=== PATIENT | male | born 1955 | race Caucasian/White ===

== ENCOUNTER 2017-01-10 23:01 | Inpatient (IN) | payer OTHER ==
[~2017-01-10] VITALS: Ht 175.3 cm; Wt 76.8 kg
[2017-01-11] VITALS (13 sets, daily range): BP systolic 109–140; BP diastolic 69–97; PULSE 55–81; RESP 14–20; Ht 175.3 cm; Wt 76.8 kg
[2017-01-11] MEDS ORDERED: morphine 2 MG INJ IV PRN (05:30)
[2017-01-11] MEDS ORDERED: NITROGLYCERIN (SL) 0.4 MG TAB SL PRN (05:30)
[2017-01-11] MEDS ORDERED: ACETAMINOPHEN 325 MG TAB PO PRN (05:30)
[2017-01-11] MEDS: PANTOPRAZOLE 40 MG INJ IV SCH (06:00)
[2017-01-11] MEDS: ASPIRIN 325 MG TAB PO SCH (10:03)
[2017-01-11] MEDS: ENOXAPARIN 40 MG/0.4 ML SYG SC SCH (10:05)
[2017-01-11 10:30] LABS: ADD SCAN DIFF NO
--- NOTE | 2017-01-11 10:34 | HP ---
DATE OF ADMISSION: 01/11/2017 HISTORY OF PRESENT ILLNESS: Александр Foster is a middle-aged man with no significant past medical history, taken to [facility] with back pain, nausea, diaphoresis and patient was on . The patient was noted to have hematocrit 44.4, BUN 21, , potassium 4.1. The patient had troponin 0.11. Chest x-ray within normal limits and the patient was transferred here for further management. The patient's EKG shows sinus bradycardia, rate of 58, otherwise unremarkable. PAST MEDICAL HISTORY: Negative. ALLERGY: NEGATIVE. SOCIAL HISTORY: Negative. FAMILY HISTORY: Positive for CVA, hypertension. MEDICATION HISTORY: None. REVIEW OF SYSTEMS: HEENT: Unremarkable. RESPIRATORY: Unremarkable. CARDIOVASCULAR: Unremarkable. ABDOMEN: Unremarkable. EXTREMITIES: Unremarkable. GENITOURINARY: Unremarkable. MUSCULOSKELETAL: Unremarkable. PHYSICAL EXAMINATION: GENERAL: The patient is awake, alert. VITAL SIGNS: Pulse 75 , blood pressure stable . HEAD: Atraumatic, normocephalic. Pupils equal, reactive to light. NECK: Supple. No JVD. LUNGS: Clear. CARDIOVASCULAR: S1, S2 normal. ABDOMEN: Soft, obese. Bowel sounds positive. No palpable mass or hepatosplenomegaly. No guarding, rebound tenderness. EXTREMITIES: There is no cyanosis, clubbing, or edema. CENTRAL NERVOUS SYSTEM: The patient is awake, alert with no focal deficit. LABORATORY DATA: As mentioned above. IMPRESSION: 1. Acute coronary syndrome, positive troponin. 2. Rule out myocardial infarction. 3. Sinus bradycardia. PLAN: To obtain cardiology consultation, a 2D echo. Troponin will be sent and possible Lexiscan. Orders were done. Dictated By: LUDY NICHOLAS MD BS/NTS Conf#: [id number] DID#: [id number] MTDD
[2017-01-11 10:36] LABS: BASOPHIL # 0.1 10^3/ul (0.0-0.1); BASOPHILS % 0.6 % (0.0-2.0); EOSINOPHILS # 0.2 10^3/ul (0.0-0.5); EOSINOPHILS % 1.8 % (0.0-7.0); HEMATOCRIT 46.4 % (42.0-52.0); HEMOGLOBIN 15.3 g/dl (14.0-18.0); LYMPHOCYTES # 2.1 10^3/ul (0.8-2.9); MEAN CORPUSCULAR HEMOGLOBIN 30.1 pg (29.0-33.0); MEAN CORPUSCULAR VOLUME 91.2 fl (82.0-101.0); MEAN PLATELET VOLUME 9.9 fl (7.4-10.4); MONOCYTE # 0.5 10^3/ul (0.3-0.9); MONOCYTES % 6.2 % (0.0-11.0); NEUTROPHIL # 5.3 10^3/ul (1.6-7.5); NEUTROPHILS % 64.9 % (39.0-77.0); PLATELET COUNT 173 10^3/UL (140-415); RED BLOOD COUNT 5.09 10^6/ul (4.70-6.10); RED CELL DISTRIBUTION WIDTH 12.4 % (11.5-14.5); WHITE BLOOD COUNT 8.1 10^3/ul (4.8-10.8)
[2017-01-11 11:05] LABS: ALBUMIN 4.8 g/dl (3.3-4.9); ALBUMIN/GLOBULIN RATIO 1.65; BILIRUBIN,INDIRECT 0.6 mg/dl (0-1.1); BILIRUBIN,TOTAL 0.6 mg/dl (0.2-1.3); CALCIUM 9.7 mg/dl (8.4-10.2); CHOL/HDL RATIO 4.3 RATIO; CREATININE 0.96 mg/dl (0.61-1.24); TOTAL PROTEIN 7.7 g/dl (6.1-8.1)
[2017-01-11] MEDS: AL HYDROX/MG HYDROX/SIMETH 30 ML CUP PO PRN ×2 (12:39→22:00)
--- NOTE | 2017-01-11 16:39 | RADRPT ---
Echocardiogram Report Patient Name: SOLA DAVIDSON Gender: Male Date: 1955 Study Date: 11-Jan-2017 Data Entry Assistant: Ngozi [facility] Location: 5554 Ref. Physician: LUDY NICHOLAS Quality: Adequate Procedures: Transthoracic echocardiogram with complete 2D, M-Mode, and doppler examination. Indications: Chest Pain. 2D/M Mode Doppler Measurement Value Normal Ranges Measurement Value Normal Ranges LVIDd 2D 4.1 3.5 - 5.6 cm AV Peak Pako 1.4 m/sec LVIDs 2D 2.6 2.1 - 4.1 cm AV Peak PG 7.3 mmHg LVPWd 2D 0.9 0.6 - 1.1 cm LVOT Peak Pako 1.0 m/sec IVSd 2D 0.8 0.6 - 1.1 cm LVOT Peak PG 4.1 mmHg AoR Diam 2D 2.9 2.0 - 3.7 cm MV E Peak Pako 0.8 m/sec EDV 2D 72.6 cm3 MV A Peak Pako 0.9 m/sec ESV 2D 18.0 cm3 MV E/A 0.9 LA Dimen 2D 3.5 2.3 - 4.0 cm MV Decel Time 200 msec MV Decel [place] 4 MV E/A 0.9 Findings Left Ventricle: Normal left ventricular systolic function. Normal left ventricular cavity size. Normal left ventricular wall thickness. Ejection fraction is visually estimated at 60 %. Tissue Doppler/Mitral Doppler indices are consistent with impaired relaxation (Stage I diastolic dysfunction). Right Ventricle: Normal right ventricular size. Normal right ventricular systolic function. Left Atrium: The left atrium is normal in size. Right Atrium: The right atrium is normal in size. Mitral Valve: Mitral valve leaflets appear mildly thickened. Trace mitral regurgitation. Aortic Valve: Normal appearance of the aortic valve. No significant aortic stenosis or insufficiency. Tricuspid Valve: Normal appearance and function of the tricuspid valve with trace physiologic regurgitation. Unable to obtain RVSP due to minimal presence of tricuspid regurgitation. Pulmonic Valve: Pulmonic valve not well visualized. There is trace pulmonic regurgitation. Pericardium: Normal pericardium with no significant pericardial effusion. Aorta: Normal aortic root. IVC: Normal size and normal respiratory collapse consistent with normal right atrial pressure. Conclusions 1.Normal left ventricular systolic function. Normal left ventricular cavity size. Normal left ventricular wall thickness. Ejection fraction is visually estimated at 60 %. Tissue Doppler/Mitral Doppler indices are consistent with impaired relaxation (Stage I diastolic dysfunction). 2.Mitral valve leaflets appear mildly thickened. Trace mitral regurgitation. 3.Normal appearance and function of the tricuspid valve with trace physiologic regurgitation. Unable to obtain RVSP due to minimal presence of tricuspid regurgitation. 4.Pulmonic valve not well visualized. There is trace pulmonic regurgitation. Electronically Signed By: Wale Parks 11-Jan-2017 16:38:22 -0700 Patient Name: SOLA DAVIDSON Study Date: 11-Jan-[id number]
--- NOTE | 2017-01-11 16:49 | CONS ---
DATE OF ADMISSION: 01/11/2017 DATE OF CONSULTATION: 01/11/2017 TYPE OF CONSULTATION: Cardiology REASON FOR CONSULTATION: Chest pain, assess for acute coronary syndrome. REQUESTING PHYSICIAN: Cortes Nicholas MD. HISTORY OF PRESENT ILLNESS: Mr. Foster is a very pleasant 61-year-old male with history of dyslipidem ia, who had initially presented to an outside hospital with complaints of back pain radiating to his throat and arm as well, poorly describes as a dull sensation, associated diaphoresis at rest. The patient was [facility] has had stable vital signs and heart rates from as low as 55 to 70s. The patient denies ongoi ng back pain or chest pain, throat pain at this time. The patient's labs thus far notable for sodiu m 141, potassium 4.0, creatinine 1.96, BUN 16. Troponin negative. LDL 107, HDL 45. White blood ce ll count 8.1, hemoglobin 15.3, platelet count 173. There are no imaging studies for my review at th is time. There is no electrocardiogram in the chart for my review at this time. PAST MEDICAL HISTORY: As above in HPI. MEDICATIONS CURRENTLY IN HOSPITAL: 1. Atorvastatin 20 mg at bedtime. 2. Aspirin 325 mg daily. 3. Carvedilol 3.125 mg daily. 4. Protonix 40 mg IV daily. 5. Sublingual nitroglycerin p.r.n. 6. Tylenol p.r.n. 7. Morphine p.r.n. ALLERGIES: NO KNOWN DRUG ALLERGIES. SOCIAL HISTORY: Remote tobacco, quit greater than 20 years. Social ETOH, no illicit drug use. FAMILY HISTORY: No history of sudden cardiac or early CAD. REVIEW OF SYSTEMS: As above in HPI. CONSTITUTIONAL: No fevers, chills. PULMONARY: No current shortness of breath. CARDIOVASCULAR: Intermittent back pain, throat pain, chest pain. GASTROINTESTINAL: No vomiting. GENITOURINARY: No hematuria. MUSCULOSKELETAL: Back pain. PSYCHIATRIC: The patient denies depression. NEUROLOGIC: No documented history of CVA. PHYSICAL EXAMINATION VITAL SIGNS: Temperature 98.6, blood pressure 109/74, pulse 65, respiratory rate 20, saturating 98% . GENERAL: The patient is alert, awake, in no acute distress. NECK: JVP approximately 8 to 9 cm water. CHEST: Fair air movement throughout. HEART: Regular rate and rhythm. S1, S2, I/ systolic murmur, nondisplaced PMI. ABDOMEN: Positive bowel sounds, soft. EXTREMITIES: No edema, 1+ pulses bilaterally posterior tibial. LABORATORIES: As above in HPI, since admit the patient had 2 troponins return negative. IMAGING STUDIES: As above in HPI. No further imaging studies for my review at this time. ECG: No electrocardiograms for my review at this time. IMPRESSION: 1. Chest pain, assess for acute coronary syndrome. 2. Dyslipidemia. 3. Bradycardia, intermittent. 4. Hypertension, borderline. 5. Back pain. RECOMMENDATIONS: 1. At this time, I would maintain the patient on telemetry monitoring to follow rhythm and rate con trol closely. 2. Would complete the patient's rule out for myocardial infarction to ensure this patient's back pa in, throat pain were not due to an acute coronary syndrome, acute myocardial infarction, thus send a final troponin. 3. Check a 2D echo to further assess patient's ejection fraction, wall motion and any major abnorma lities. 4. Continue to check serial EKGs to assess for any significant ongoing changes, an EKG in the [facility], EKG for any complaints of chest pain or change in rhythm. 5. Continue the patient's aspirin for prophylaxis against cardiovascular events. 6. Continue the patient's current carvedilol in the setting of chest pain. 7. Continue the patient's current statin therapy and adjust it according to a fasting lipid panel. 8. We will give patient sublingual nitroglycerin for recurrent chest pain. If the patient does rul e out for myocardial infarction, I believe this patient will benefit from further inpatient risk str atification with cardiac stress test which thus can be scheduled to take place tomorrow morning. Thank you for allowing me to take part in the care of this patient. I will continue to follow along very closely with you. Further recommendations will be made as the patient progresses through his inpatient hospital clinical course. Dictated By: RAVINDRA PATEL/CRUZ Conf#: [id number] DID#: [id number] CC: CORTES NICHOLAS MD;*EndCC*
[2017-01-11] MEDS ORDERED: ATORVASTATIN 20 MG TAB PO SCH (21:00)
[2017-01-12] VITALS (8 sets, daily range): BP systolic 102–118; BP diastolic 65–73; PULSE 66–75; RESP 18
[2017-01-12] MEDS: PANTOPRAZOLE 40 MG INJ IV SCH (05:24)
[2017-01-12] MEDS: ASPIRIN 325 MG TAB PO SCH (08:27)
[2017-01-12] MEDS: ENOXAPARIN 40 MG/0.4 ML SYG SC SCH (08:32)
[2017-01-12] MEDS ORDERED: REGADENOSON 0.4 MG/5 ML SYG ONE (10:42)
--- NOTE | 2017-01-12 12:12 | CONS ---
Date/Time of Note Date/Time of Note DATE: 01/12/17 TIME: 12:08 Assessment/Plan Assessment/Plan Chief Complaint/Hosp Course IMPRESSION: 1. Chest pain, assess for acute coronary syndrome.-negative troponin x 3/NL EF by echo this admit 2. Dyslipidemia. 3. Bradycardia, intermittent. 4. Hypertension, borderline. 5. Back pain. Recc: -Tele -Continue coreg -Continue asa -Continue statin -Lexiscan stress test today and if negative then ok for d/c planning Problems: Consultation Date/Type/Reason Admit Date/Time Jan 11, 2017 at 01:03 Initial Consult Date 01/12/2017 Type of Consultation: Cardiology Reason for Consultation Chest pain Referring Provider: LUDY NICHOLAS Exam/Review of Systems Vital Signs Vitals Vital Signs Date Time Temp Pulse Resp B/P Pulse Ox O2 Delivery O2 Flow Rate FiO2 01/12/17 12:05 74 01/12/17 07:42 98.3 18 118/67 97 01/11/17 01:48 Room Air Intake and Output 01/11/17 01/11/17 01/12/17 15:00 23:00 07:00 Intake Total 1200 ml 400 ml Balance 1200 ml 400 ml Exam Review of Systems: CONSTITUTIONAL: No fevers, chills. PULMONARY: No sob CARDIOVASCULAR: Positive chest pain GASTROINTESTINAL: No nausea/vomiting. GENITOURINARY: No hematuria/dysuria. MUSCULOSKELETAL: No myagias/arthalgias. PSYCHIATRIC: The patient denies depression. NEUROLOGIC: No weakness Constitutional: alert, oriented Psych: no complaints Head: normocephalic ENMT: mucosa pink and moist Neck: jvd (9 cm water), supple Respiratory: diminished breath sounds (at bases/B) Cardiovascular: regular rate and rhythm Gastrointestinal: non-tender, soft Musculoskeletal: muscle tone (normal) Extremities: edema (none) Neurological: other (No focal deficits) Results Result Diagram: 01/11/17 0942 01/11/17 0942 Results 24 hrs Laboratory Tests Test 01/11/17 12:55 01/11/17 18:24 Troponin I 0.086 0.103 Medications Medications Current Medications Pantoprazole (Protonix Iv) 40 mg DAILY@06 IV Last administered on 01/12/17t 05: 24; Admin Dose 40 MG; Start 01/11/17 at 06:00 Aspirin (Aspirin) 325 mg DAILY PO Last administered on 01/12/17 08:27; Admin Dose 325 MG; Start 01/11/17 at 09:00 Carvedilol (Coreg) 3.125 mg DAILY PO Last administered on 01/12/17 08:28; Admin Dose 3.125 MG; Start 01/11/17 at 09:00 Atorvastatin Calcium (Lipitor) 20 mg HS PO Last administered on 01/11/17 22:01 ; Admin Dose 20 MG; Start 01/11/17 at 21:00 Enoxaparin Sodium (Lovenox) 40 mg DAILY SC Last administered on 01/12/17 08:32 ; Admin Dose 40 MG; Start 01/11/17 at 09:00 Nitroglycerin (Nitroglycerin (Sl Tab) 0.4 Mg) 1 tab Q5M PRN SL ANGINA; Start at 05:30 Acetaminophen (Tylenol Tab) 650 mg Q6H PRN PO PAIN AND OR ELEVATED TEMP; Start 01/11/17 at 05:30 Morphine Sulfate (morphine) 2 mg Q4H PRN IV PAIN LEVEL 4-6; Start 01/11/17 at 05:30 Al Hydrox/Mg Hydrox/Simethicone (Mag-Al Plus) 30 ml Q6H PRN PO GASTROINTESTINAL UPSET Last administered on 01/11/17 22:00; Admin Dose 30 ML; Start 01/11/17 at 12:30 RAVINDRA BRITT Jan 12, 2017 12:12
--- NOTE | 2017-01-12 12:30 | CARRPT ---
DATE OF PROCEDURE: 01/12/2017 LEXISCAN CARDIOLITE STRESS TEST, ELECTROCARDIOGRAM PORTION REASON FOR STRESS TESTING: Chest pain. Assess for ischemia. BASELINE VITAL SIGNS AND ELECTROCARDIOGRAM: Pulse 62, blood pressure 138/81. Electrocardiogram rev eals normal sinus rhythm, rate of 62, normal axis, normal intervals, right axis deviation. PROCEDURE: The patient underwent standard Lexiscan infusion protocol over 10 seconds, followed by r adiolabeled tracer. The patient's test was stopped due to completion of protocol. Maximal achieved blood pressure during the test was w124/72. Maximum heart rate during the test was 95. ELECTROCARDIOGRAM FINDINGS: The patient did not develop any new Lexiscan-induced ST or T-wave mendoza es from baseline abnormalities. No documented PVCs. SYMPTOMS: The patient had no complaints of chest pain or shortness of breath during stress testing. IMPRESSION: 1. No Lexiscan-induced ST or T-wave changes from baseline abnormalities diagnostic for cardiac isch emia. 2. No complaints of chest pain during stress testing. Positive shortness of breath, resolved in re covery. 3. No documented premature ventricular contractions during stress testing. 4. Report of nuclear images to follow in separate dictation. Dictated By: RAVINDRA PATEL/CRUZ Conf#: [id number] DID#: [id number] CC: LUDY NICHOLAS MD;*EndCC*
--- NOTE | 2017-01-12 15:12 | RADRPT ---
PROCEDURE: Lexiscan myocardial perfusion study CLINICAL INDICATION: 61 -year-old patient complaining of chest pain. TECHNIQUE: Lexiscan 0.4 mg intravenously separate acquisition gated myocardial perfusion SPECT usi ng Tc 99m Myoview 31.1 mCi intravenously at stress and Tc-99m Myoview, 10.0 mCi intravenously at res t was performed using the rest/stress sequence. Poststress Myoview SPECT images were obtained in th e supine position. COMPARISON: No prior studies. FINDINGS: Perfusion images reveal a small size mild in degree reversible perfusion defect in the inferior wall . Lexiscan post stress gated SPECT images demonstrate no wall motion abnormalities. IMPRESSION: 1. The type and distribution of the scintigraphic abnormalities are most consistent with a small re versible perfusion defect in the inferior wall. 2. No wall motion abnormalities. 3. The left ventricle ejection fraction at stress is 58%. A call report was made to Dr. Parks at 03:10 p.m. on January 12, 2017. RPTAT: HH .Preeti Chung MD, MD Date Time Electronically viewed and signed by .Preeti Chung MD, on 01/12/2017 15:11 .L/
--- NOTE | 2017-01-12 19:55 | PN ---
Date/Time of Note Date/Time of Note DATE: 01/12/17 TIME: 19:54 Assessment/Plan VTE Prophylaxis VTE Prophylaxis Intervention: other Lines/Catheters IV Catheter Type (from Nrsg): Saline Lock Assessment/Plan Chief Complaint/Hosp Course IMPRESSION: 1. Acute coronary syndrome, positive troponin. 2. Rule out myocardial infarction. 3. Sinus bradycardia. plan home per cardio Problems: Subjective 24 Hr Interval Summary Gastrointestinal: no complaints Genitourinary: no complaints Exam/Review of Systems Vital Signs Vitals Vital Signs Date Time Temp Pulse Resp B/P Pulse Ox O2 Delivery O2 Flow Rate FiO2 01/12/17 16:06 75 01/12/17 15:46 97.4 18 102/65 96 01/11/17 01:48 Room Air Intake and Output 01/11/17 01/11/17 01/12/17 15:00 23:00 07:00 Intake Total 1200 ml 400 ml Balance 1200 ml 400 ml Exam Respiratory: clear to auscultation Cardiovascular: regular rate and rhythm Results Result Diagram: 01/11/17 0942 01/11/17 0942 Medications Medications Current Medications Aspirin (Aspirin) 325 mg DAILY PO Last administered on 01/12/17 08:27; Admin Dose 325 MG; Start 01/11/17 at 09:00 Atorvastatin Calcium (Lipitor) 20 mg HS PO Last administered on 01/11/17 22:01 ; Admin Dose 20 MG; Start 01/11/17 at 21:00 Enoxaparin Sodium (Lovenox) 40 mg DAILY SC Last administered on 01/12/17 08:32 ; Admin Dose 40 MG; Start 01/11/17 at 09:00 Nitroglycerin (Nitroglycerin (Sl Tab) 0.4 Mg) 1 tab Q5M PRN SL ANGINA; Start at 05:30 Acetaminophen (Tylenol Tab) 650 mg Q6H PRN PO PAIN AND OR ELEVATED TEMP; Start 01/11/17 at 05:30 Morphine Sulfate (morphine) 2 mg Q4H PRN IV PAIN LEVEL 4-6; Start 01/11/17 at 05:30 Al Hydrox/Mg Hydrox/Simethicone (Mag-Al Plus) 30 ml Q6H PRN PO GASTROINTESTINAL UPSET Last administered on 01/11/17 22:00; Admin Dose 30 ML; Start 01/11/17 at 12:30 Carvedilol (Coreg) 3.125 mg BID PO ; Start 01/12/17 at 21:00 Pantoprazole (Protonix Tab) 40 mg DAILY@06 PO ; Start 01/13/17 at 06:00 LUDY NICHOLAS MD Jan 12, 2017 19:55
[2017-01-13] MEDS ORDERED: PANTOPRAZOLE (EC) 40 MG TAB PO SCH (06:00)
--- NOTE | 2017-01-13 10:12 | RADRPT ---
Vent Rate: 57 bpm RR Interval: 0 msec [place] Interval: 164 msec QRS Duration: 80 msec QT Interval: 422 msec QTC Interval: 410 msec P-R-T [place]: 49 - 86 - 39 degrees Sinus bradycardia Otherwise normal ECG Electronically Signed By: Ryan Martins [id number]
== END 2017-01-12 20:04 | disposition home or self-care (01) | DRG 313 ==
LOC: MS4 01-11 01:03
PROVIDERS: ADMIT Internal Medicine Nephrology; ATTEND Internal Medicine Nephrology
DX: R07.9 Chest pain, unspecified (principal); I10 Essential (primary) hypertension; R00.1 Bradycardia, unspecified; E78.5 Hyperlipidemia, unspecified; M54.9 Dorsalgia, unspecified; Z87.891 Personal history of nicotine dependence
CPT/HCPCS: 78452; 80053; 80061; 84484; 85025; 93005; 93017; 93306; A9500; A9505; C9113; J1650; J2785